=== PATIENT | male | born 1950 | race Caucasian/White ===

== ENCOUNTER 2016-11-16 17:01 | Inpatient (IN) | payer OTHER ==
--- NOTE | 2016-11-16 17:45 | RAD ---
EXAM DESCRIPTION: Chest,1 View CLINICAL HISTORY: 66 years Male syncope COMPARISON: None. FINDINGS: The cardiomediastinal silhouette appears unremarkable. No consolidating infiltrates or pleural effusions. No pneumothorax. IMPRESSION: No acute abnormality is identified. Electronically signed by: Zuri Cee 11/16/2016 5:44 PM CDT
--- NOTE | 2016-11-16 17:56 | CT ---
PROCEDURE: Head CLINICAL HISTORY: 66 years Male syncope COMPARISON: None. TECHNIQUE: Contiguous axial images obtained through the brain without IV contrast. This exam was performed according to our department optimization program which includes automated exposure control, adjustment of the mA and/or kv according to patient size and/or use of iterative reconstruction technique. FINDINGS: The ventricles and sulci are prominent consistent with atrophic changes. No mass lesions. No acute hemorrhage. Atherosclerotic calcifications. Area of previous infarct in the left lentiform nuclei and caudate. 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 No fluid or significant mucosal thickening in the visualized paranasal sinuses. No depressed calvarial fractures. IMPRESSION: No acute intracranial abnormality is identified. Electronically signed by: Zuri Cee 11/16/2016 5:56 PM CDT
[2016-11-16] MEDS ORDERED: SODIUM CHLORIDE 0.9% 1000ML 1,000 ML IVS ONE (17:57)
--- NOTE | 2016-11-16 21:04 | ED.PDOC ---
History of Present Illness - General Chief Complaint: Neuro Symptoms/Deficits Stated Complaint: SYNCOPE AT [facility] Time Seen by Provider: 11/16/16 17:11 Source: patient Exam Limitations: no limitations - History of Present Illness Initial Comments: the patient is a 66-year-old male presenting after collapse while sitting outside [facility] where he works smoking. The patient was down and unresponsive for at least 5 minutes. He was oxygenating and had a fairly normal blood pressure when EMS arrived. He was however unresponsive and EMS was about to intubate the patient when he started coming around. Witnesses do report a few shaking movement movements at the start. These did not persist. He did soil himself. No biting of the tongue. He does have a very distant history of seizures but he essentially had no postictal period seen here. He is not hurting anywhere. He is having no chest pain or shortness of breath. He is having no headache. He is moving all his extremities well. Speaking well. He is able to give me his full medical history. he has been feeling tired and weak over the past few weeks. He does take hydrocodone and Xanax. He is significantly tilt positive here today. Both symptomatically and by the numbers. He is hypotensive here today mildlywhen lying flat. Timing/Duration: momentarily Severity: severe Improving Factors: nothing Worsening Factors: nothing, movement Associated Symptoms: malaise, syncope, weakness Allergies/Adverse Reactions: Allergies NO KNOWN ALLERGY Allergy (Verified 11/16/16 17:13) Review of Systems - Review of Systems Constitutional: States: malaise EENTM: States: no symptoms reported Respiratory: States: no symptoms reported Cardiology: States: no symptoms reported, syncope Gastrointestinal/Abdominal: States: no symptoms reported Genitourinary: States: no symptoms reported Musculoskeletal: States: no symptoms reported Skin: States: no symptoms reported Neurological: States: weakness - generalized Endocrine: States: no symptoms reported Hematologic/Lymphatic: States: no symptoms reported All other Systems: No Change from Baseline Past Medical History (General) - Patient Medical History Hx Seizures: No Hx Stroke: Yes Hx Dementia: No Hx Asthma: No Hx of COPD: No Hx Cardiac Disorders: Yes Hx Congestive Heart Failure: No Hx Pacemaker: No Hx Hypertension: Yes Hx Thyroid Disease: No Hx Diabetes: No Hx Gastroesophageal Reflux: No Hx Renal Disease: No Hx Cancer: No Hx of HIV: No Hx Hepatitis C: No Hx MRSA: No - Vaccination History Hx Tetanus, Diphtheria Vaccination: No Hx Influenza Vaccination: No Hx Pneumococcal Vaccination: No Immunizations Up to Date: No - Social History Hx Tobacco Use: Yes Hx Chewing Tobacco Use: No Hx Alcohol Use: No Hx Substance Use: No Hx Substance Use Treatment: No Hx Depression: No Feels Threatened In Home Enviroment: No Feels Threatened In a Relationship: No Hx Physical Abuse: No Hx Emotional Abuse: No Hx Suspected Abuse: No - Activities of Daily Living Hospice Agency (if applicable):: None - Female History Patient is a Female of Child Bearing Age (10 -59 yrs old): No Patient : No Family Medical History - Family History Mother Family History: Unknown Living Status: Physical Exam - Physical Exam General Appearance: Alert, Frail, No apparent distress Eye Exam: bilateral normal Ears, Nose, Throat: hearing grossly normal, normal ENT inspection, normal pharynx Neck: non-tender, full range of motion, supple, normal inspection Respiratory: chest non-tender, lungs clear, normal breath sounds, no respiratory distress, no accessory muscle use Cardiovascular/Chest: normal peripheral pulses, regular rate, rhythm, no edema Peripheral Pulses: radial,right: 2+, radial,left: 2+, dorsalis pedis,right: 2+, dorsalis pedis,left: 2+, posterior tibialis,right: 2+, posterior tibialis,left: 2+ Gastrointestinal/Abdominal: non tender, soft Rectal Exam: deferred Back Exam: normal inspection, no CVA tenderness, no vertebral tenderness Extremity: normal range of motion, non-tender, normal inspection, no pedal edema , normal capillary refill 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, no motor/sensory deficits, alert, normal mood/affect, oriented x 3 Skin Exam: normal color Comments: Vital Signs - 24 hr 11/16/16 11/16/16 11/16/16 17:13 18:00 19:00 Temperature 97 F L 97 F L Pulse Rate [ 73 66 67 Left Radial] Respiratory 18 18 18 Rate Blood Pressure 97/37 93/53 106/59 [Left Arm] O2 Sat by Pulse 98 98 98 Oximetry 11/16/16 20:00 Temperature 98 F Pulse Rate [ 78 Left Radial] Respiratory 18 Rate Blood Pressure 127/77 [Left Arm] O2 Sat by Pulse 98 Oximetry Progress - Progress Progress: 11/16/16 21:07 the patient is a 66-year-old male presenting after collapse in the parking lot [facility]. The patient is found to be significantly hypotensive and tilt positive. He has received a liter of IV fluids and is feeling somewhat better. The patient has remained on telemetry monitoring. Cardiac enzymes 2 sets are negative. It is possible the patient may have too much hydrocodone and Xanax onboard. The patient will be admitted and monitored overnight to make sure arrhythmia is not contributing to his collapse. - Results/Orders Results/Orders: Laboratory Tests 11/16/16 11/16/16 11/16/16 17:20 17:20 17:20 WBC 12.2 H RBC 4.53 L Hgb 10.2 L Hct 33.1 L MCV 73.1 L MCH 22.5 L MCHC 30.8 L RDW 17.4 H Plt Count 409 H MPV 7.8 Absolute Neuts (auto) 9.20 H Absolute Lymphs (auto) 1.60 Absolute Monos (auto) 1.00 H Absolute Eos (auto) 0.30 Absolute Basos (auto) 0.10 Neutrophils % 74.8 Lymphocytes % 13.4 L Monocytes % 8.4 Eosinophils % 2.6 Basophils % 0.8 Normal RBC Morphology 1+microcytosis PT 11.8 INR 1.040 PTT (SP) 25.7 D-Dimer, Quantitative < 200 Sodium 129 L Potassium 4.0 Chloride 94 L Carbon Dioxide 25 Anion Gap 14.0 BUN 11 Creatinine 1.37 H BUN/Creatinine Ratio 8.0 L Random Glucose 127 H Serum Osmolality 259.9 L Calcium 9.0 Total Bilirubin 0.6 AST 18 ALT 13 Alkaline Phosphatase 65 Creatine Kinase 266 H* CK-MB (CK-2) 7.3 H* CK-MB (CK-2) % 2.74 Troponin I < 0.02 B-Natriuretic Peptide 53.0 Serum Total Protein 7.1 Albumin 4.4 Globulin 2.7 Albumin/Globulin Ratio 1.6 TSH 6.90 H 11/16/16 20:10 WBC RBC Hgb Hct MCV MCH MCHC RDW Plt Count MPV Absolute Neuts (auto) Absolute Lymphs (auto) Absolute Monos (auto) Absolute Eos (auto) Absolute Basos (auto) Neutrophils % Lymphocytes % Monocytes % Eosinophils % Basophils % Normal RBC Morphology PT INR PTT (SP) D-Dimer, Quantitative Sodium Potassium Chloride Carbon Dioxide Anion Gap BUN Creatinine BUN/Creatinine Ratio Random Glucose Serum Osmolality Calcium Total Bilirubin AST ALT Alkaline Phosphatase Creatine Kinase 297 H* CK-MB (CK-2) 6.6 H* CK-MB (CK-2) % 2.22 Troponin I < 0.02 B-Natriuretic Peptide Serum Total Protein Albumin Globulin Albumin/Globulin Ratio TSH EKG shows normal sinus rhythm on both EKGs. Mild diffuse ST elevation consistent with LVH. No obvious acute ST segment changes concerning for immediate ischemia. head CT shows no acute changes. No hydrocephalus. Chronic changes are present. chest x-ray shows no acute pathology. Departure - Departure Clinical Impression: Syncope and collapse Hypotension arterial Qualifiers: Hypotension type: orthostatic hypotension Qualified Code(s): I95.1 - Orthostatic hypotension Disposition: Admit Patient Decision To Admit - Decistion To Admit Decision to Admit Reason: Medical Nature Decision to Admit Date: 11/16/16 Decision to Admit Time: 21:08
[2016-11-16] MEDS ORDERED: ONDANSETRON INJ 4 MG/2 ML VIAL IV PRN (21:22)
[2016-11-16] MEDS ORDERED: SODIUM CHLORIDE 0.9% 1000ML 1,000 ML IVS PRN (21:22)
[2016-11-16] MEDS ORDERED: ACETAMINOPHEN 325 MG TAB PO PRN (21:22)
[2016-11-16] MEDS ORDERED: LEVALBUTEROL NEBS 1.25 MG/3 ML VIAL INH PRN (21:22)
[2016-11-16] MEDS ORDERED: MAGNESIUM HYDROXIDE 30 ML UD PO PRN (21:22)
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
[2016-11-16] MEDS ORDERED: IV SET AND CAP CHANGE INJ INJ SCH (21:30)
[2016-11-16] MEDS ORDERED: SOD CHL 3% *HYPERTONIC* 500ML 300 ML IVS ONE (21:30)
[2016-11-16] MEDS: IPRATROPIUM/ALBUTEROL 3 ML VIAL INH SCH (22:43)
[2016-11-16] MEDS: SODIUM CHLORIDE 0.9% (FLUSH) 10 ML SYG IV PRN (22:49)
[2016-11-16] MEDS ORDERED: NICOTINE PATCH 14 MG TD SCH (23:45)
[2016-11-17] MEDS: OMEPRAZOLE CAP 20 MG CAP PO SCH (06:00)
[2016-11-17] MEDS: IPRATROPIUM/ALBUTEROL 3 ML VIAL INH SCH ×4 (08:44→20:32)
[2016-11-17] MEDS: SUCRALFATE 1 GM/10 ML 1 GM UD PO SCH ×3 (09:55→20:01)
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
[2016-11-17] MEDS ORDERED: FERROUS GLUCONATE 325 MG TAB ONE (15:34)
[2016-11-17] MEDS: FERROUS GLUCONATE 325 MG TAB PO SCH (17:41)
[2016-11-17] MEDS ORDERED: ALPRAZolam 0.5 MG TAB PO PRN (19:42)
[2016-11-17] MEDS ORDERED: FUROSEMIDE INJ 20 MG/2 ML VIAL ONE (19:44)
[2016-11-17] MEDS ORDERED: NICOTINE PATCH 14 MG TD ONE (19:44)
[2016-11-17] MEDS: SODIUM CHLORIDE 0.9% (FLUSH) 10 ML SYG IV PRN (19:50)
[2016-11-17] MEDS: NICOTINE PATCH 14 MG TD SCH (20:01)
[2016-11-17] MEDS ORDERED: FUROSEMIDE INJ 20 MG/2 ML VIAL IV ONE (22:00)
[2016-11-18] MEDS: OMEPRAZOLE CAP 20 MG CAP PO SCH (06:03)
[2016-11-18] MEDS: SUCRALFATE 1 GM/10 ML 1 GM UD PO SCH ×4 (06:03→20:39)
[2016-11-18] MEDS ORDERED: SOD CHL 3% *HYPERTONIC* 500ML 300 ML IVS ONE (07:28)
[2016-11-18] MEDS: FERROUS GLUCONATE 325 MG TAB PO SCH ×2 (08:13→18:09)
[2016-11-18] MEDS: IPRATROPIUM/ALBUTEROL 3 ML VIAL INH SCH ×4 (08:23→20:00)
[2016-11-18] MEDS ORDERED: COSYNTROPIN 0.25 MG VIAL IV ONE (17:00)
[2016-11-18] MEDS ORDERED: DEXAMETHASONE INJ 4 MG/ML VIAL IV ONE (17:08)
[2016-11-18] MEDS ORDERED: ALPRAZolam 0.5 MG TAB PO PRN (17:17)
[2016-11-18] MEDS ORDERED: SOD CHL 3% *HYPERTONIC* 500ML 200 ML IVS ONE (17:18)
[2016-11-18] MEDS: FUROSEMIDE INJ 20 MG/2 ML VIAL IV SCH (18:13)
[2016-11-18] MEDS: NICOTINE PATCH 14 MG TD SCH (20:40)
[2016-11-18] MEDS ORDERED: ALPRAZolam 0.25 MG TAB PO SCH (21:00)
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
[2016-11-19] MEDS: SUCRALFATE 1 GM/10 ML 1 GM UD PO SCH ×2 (06:10→10:28)
[2016-11-19] MEDS: OMEPRAZOLE CAP 20 MG CAP PO SCH (06:10)
[2016-11-19] MEDS ORDERED: COSYNTROPIN 0.25 MG VIAL IV ONE (08:00)
[2016-11-19] MEDS: IPRATROPIUM/ALBUTEROL 3 ML VIAL INH SCH (08:04)
[2016-11-19] MEDS: FERROUS GLUCONATE 325 MG TAB PO SCH (08:21)
[2016-11-19] MEDS: SODIUM CHLORIDE 0.9% (FLUSH) 10 ML SYG IV PRN (08:21)
[2016-11-19] MEDS: FUROSEMIDE INJ 20 MG/2 ML VIAL IV SCH ×2 (09:02→11:01)
[2016-11-19 11:02] VITALS: BP 162/75; TEMP 98.1; O2SAT 95
[2016-11-19] MEDS ORDERED: DEXAMETHASONE INJ 10 MG/ML VIAL ONE (11:42)
[2016-11-19] MEDS ORDERED: DEXAMETHASONE INJ 4 MG/ML VIAL IV ONE (12:00)
[2016-11-19] MEDS ORDERED: SUCRALFATE 1 GM TAB PO SCH (16:30)
[2016-11-19] MEDS ORDERED: ALPRAZolam 0.5 MG TAB PO SCH (21:00)
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
== END 2016-11-19 12:10 | disposition short-term general hospital (02) | DRG 206 ==
LOC: ER 17:01 → OBSVTOIN 21:25 → MS 21:25
PROVIDERS: ADMIT Emergency Medicine; ATTEND Nurse Practitioner Family
DX: R09.2 Respiratory arrest (principal); E87.1 Hypo-osmolality and hyponatremia; E27.2 Addisonian crisis; R55 Syncope and collapse; E86.0 Dehydration; I65.22 Occlusion and stenosis of left carotid artery; K59.00 Constipation, unspecified; D50.9 Iron deficiency anemia, unspecified; J44.9 Chronic obstructive pulmonary disease, unspecified; I25.10 Atherosclerotic heart disease of native coronary artery without angina pectoris; I10 Essential (primary) hypertension; I49.9 Cardiac arrhythmia, unspecified; F17.210 Nicotine dependence, cigarettes, uncomplicated; Z95.828 Presence of other vascular implants and grafts